=== PATIENT | male | born 2000 | race Two or more races ===

== ENCOUNTER 2023-09-07 13:32 | Outpatient (CLI) | payer OTHER ==
--- NOTE | 2023-09-07 16:13 | MRI Report ---
PROCEDURE: Shoulder RT WO INDICATIONS: SHOULDER PAIN TECHNIQUE: Noncontrast oblique coronal T2 fast spin echo with fat saturation, oblique sagittal T1 spin echo and T2 fast spin echo with fat saturation, axial T1 spin echo and T2 fast spin echo with fat saturation t hrough the shoulder. COMPARISON: None. FINDINGS: Image quality: Excellent. Rotator cuff: Low-grade articular and bursal surface partial-thickness tear involving distal supraspi natus at its insertion on humeral head is seen extending to musculotendinous junction. Low-grade burs al surface partial-thickness tear involving distal infraspinatus at its insertion on humeral head is also seen extending to musculotendinous junction. No full-thickness rotator cuff tendon rupture. No r otator cuff muscle atrophy on sagittal images. Bones and bursae: No bone marrow contusions or fractures. No acromioclavicular joint degeneration. The acromion demonstrates conventional anatomy, without an os acromiale. No pathologic subacromial/ subdeltoid bursal fluid is present. Capsule and soft tissues: There is fraying of superior anterior labrum with T2 hyperintense signal at 1 to 2:00 position suggestive of superior anterior labral tear. The long head of the biceps tendon d emonstrates normal location and morphology. The rotator interval appears normal, without fibrosis. The coracohumeral ligament is normal in thickness. IMPRESSION: 1. Low-grade articular and bursal surface partial-thickness tear involving distal supraspinatus exten ding to musculotendinous junction. Low-grade bursal surface partial-thickness tear involving distal i nfraspinatus extending to musculotendinous junction. No full-thickness rotator cuff tendon rupture. N o muscle atrophy. 2. No marrow edema. No fracture or dislocation. No intra-articular loose bodies. 3. Suggestion of subtle superior anterior labral tear at 1 to 2:00 position. Reviewed by: Anthony Chambers MD on 09/07/2023 4:12 PM PST Approved by: Anthony Chambers MD on 09/07/2023 4:12 PM PST Station ID: [id number]
== END 2023-09-07 13:33 | disposition home or self-care (01) ==
LOC: DI 13:32
PROVIDERS: ATTEND Nurse Practitioner Family
DX: M75.111 Incomplete rotator cuff tear or rupture of right shoulder, not specified as traumatic (principal)